=== PATIENT | male | born 1970 | race Two or more races ===

== ENCOUNTER 2023-08-26 17:46 | Emergency (ER) | payer MEDICAID, OTHER ==
[~2023-08-26] VITALS: Ht 188 cm; Wt 92.0 kg
[2023-08-26 18:02] VITALS: BP 114/88; PULSE 10; RESP 18; O2SAT 96
[2023-08-26] MEDS ORDERED: IBUP1TAB5 PO (19:59)
[2023-08-26] MEDS: HYDROcodone-ACET 5/325MG TAB PO ONE (21:28)
[2023-08-26] MEDS: KETOROLAC TROMETH 60MG/2ML VIAL IM ONE (21:29)
[2023-08-26] MEDS: DexAMETHasone SOD PHOS 10MG/1ML VIAL INJ IM ONE (21:29)
== END 2023-08-26 21:40 | disposition home or self-care (01) ==
LOC: ER 17:46
DX: S83.8X1A Sprain of other specified parts of right knee, initial encounter (principal); X50.1XXA Overexertion from prolonged static or awkward postures, initial encounter; Y93.89 Activity, other specified; Y92.89 Other specified places as the place of occurrence of the external cause; Y99.8 Other external cause status
CPT/HCPCS: 29505; 73562; 96372; 99284; J1100; J1885